=== PATIENT | female | born 1970 ===

== ENCOUNTER 2017-04-12 21:40 | Emergency (ER) | payer SELFPAY ==
[2017-04-12 21:41] VITALS: BMI 21.4
[2017-04-12 22:15] VITALS: BP 139/93; PULSE 83; RESP 16; TEMP 99; O2SAT 100
--- NOTE | 2017-04-12 22:33 | ED PDOC ---
Arrival/HPI - General Historian: Patient, Family <Luis Urrutia - Last Filed: 04/13/17 00:27> <JarrettxiangSedrick - Last Filed: 04/13/17 00:30> - General Chief Complaint: Headache Time Seen by Provider: 04/12/17 21:53 - History of Present Illness Narrative History of Present Illness (Text): 04/12/17 22:37 This is a 47 year old female with PMHx hypertension, thyroid nodule s/p right sided thyroidectomy who presented complaining of left sided frontal headache. This headache began 2 weeks ago and has been intermittent, described as a pinching pain without radiation. Patient also complaining of intermittent dizziness. Patient is also complaining of intermittent left eye and left hand paresthesias as well as left sided neck pain. Patient denies fever, chills, chest pain, dyspnea, abdominal pain, n/v/c/d, heat/cold intolerance. Patient states that she has had foul smelling urine recently. PMHx: HTN, Thyroid nodule PSHx: Right sided thyroidectomy Allergies: NKDA Social: Current smoker, denies alcohol, drugs. PMD: Dr. Blanchard (Luis Urrutia) Past Medical History - Provider Review Nursing Documentation Reviewed: Yes - Infectious Disease Hx of Infectious Diseases: None - Tetanus Immunization Tetanus Immunization: Up to Date - Cardiac Hx Cardiac Disorders: Yes Hx Hypertension: Yes - Pulmonary Hx Respiratory Disorders: No - Neurological Hx Neurological Disorder: No - HEENT Hx HEENT Disorder: No - Renal Hx Renal Disorder: No - Endocrine/Metabolic Hx Endocrine Disorders: No - Hematological/Oncological Hx Blood Disorders: No - Integumentary Hx Dermatological Disorder: No - Musculoskeletal/Rheumatological Hx Musculoskeletal Disorders: No - Gastrointestinal Hx Gastrointestinal Disorders: No - Genitourinary/Gynecological Hx Genitourinary Disorders: No - Psychiatric Hx Psychophysiologic Disorder: No Hx Substance Use: No - Surgical History Hx Tonsillectomy: Yes - Suicidal Assessment Feels Threatened In Home Enviroment: No <Luis Urrutia - Last Filed: 04/13/17 00:27> Family/Social History - Physician Review Nursing Documentation Reviewed: Yes Family/Social History: No Known Family HX Smoking Status: Heavy Smoker > 10 Cigarettes Daily Hx Alcohol Use: Yes Hx Substance Use: No <Luis Urrutia - Last Filed: 04/13/17 00:27> Allergies/Home Meds <Luis Urrutia - Last Filed: 04/13/17 00:27> <JarrettSedrick otoole - Last Filed: 04/13/17 00:30> Allergies/Adverse Reactions: Allergies No Known Allergies Allergy (Verified 12/14/15 20:34) Home Medications: Home Meds Medication Instructions Recorded Confirmed Lisinopril [Zestril] 5 mg PO DAILY 10/02/16 04/12/17 Review of Systems - Review of Systems Constitutional: Normal. absent: Fevers Eyes: Normal. absent: Vision Changes, Eye Pain ENT: Normal Respiratory: Normal. absent: SOB Cardiovascular: Normal. absent: Chest Pain Gastrointestinal: Normal. absent: Abdominal Pain, Constipation, Diarrhea, Nausea, Vomiting Genitourinary Female: Other (foul smelling urine) Musculoskeletal: Neck Pain (left sided) Skin: Normal Neurological: Headache (left sided frontal), Other (left hand and left eye paresthesias) Endocrine: Normal, Other (denies heat/cold intolerance) Hemo/Lymphatic: Normal <Luis Urrutia - Last Filed: 04/13/17 00:27> Physical Exam Vital Signs Reviewed: Yes Temperature: Afebrile Blood Pressure: Hypertensive Pulse: Regular Respiratory Rate: Normal Appearance: Positive for: Well-Appearing Pain Distress: None Mental Status: Positive for: Alert and Oriented X 3 - Systems Exam Head: Present: Atraumatic, Normocephalic Pupils: Present: PERRL Extroacular Muscles: Present: EOMI Conjunctiva: Present: Normal Mouth: Present: Moist Mucous Membranes Neck: Present: Normal Range of Motion, Paraspinal Tenderness (left sided paraspinal tenderness and increased muscle tone) Respiratory/Chest: Present: Clear to Auscultation, Good Air Exchange. No: Accessory Muscle Use Cardiovascular: Present: Regular Rate and Rhythm, Normal S1, S2 Abdomen: Present: Normal Bowel Sounds, Other (suprapubic tenderness). No: Tenderness, Distention Back: No: CVA Tenderness Upper Extremity: Present: Normal Inspection, NORMAL PULSES. No: Edema Lower Extremity: Present: Normal Inspection, NORMAL PULSES. No: Edema, CALF TENDERNESS Neurological: Present: GCS=15, CN II-XII Intact Skin: Present: Warm, Dry, Normal Color. No: Rashes Psychiatric: Present: Alert, Oriented x 3 <Luis Urrutia - Last Filed: 04/13/17 00:27> Medical Decision Making <Luis Urrutia - Last Filed: 04/13/17 00:27> - Lab Interpretations I have reviewed the lab results: Yes <Sedrick Jones - Last Filed: 04/13/17 00:30> ED Course and Treatment: 04/12/17 22:53 CBC, CMP, Mag, Phos, CT Head w.o. contrast, UA, EKG, Cardiac ISO, TSH, free T4 EKG showed NSR at rate 70 04/13/17 00:[address] Head. Patient given 10 mg IV Reglan and on re-assessment states that she feels better. Patient discharged with instructions to follow up with PMD. 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 Pt, whose past medical history includes hypertension and right-sided thyroidectomy, presented for intermittent left-sided headache for 2 weeks. Aware and agrees with HPI, clinical findings, plan, and management. Plan: -- EKG -- Labs, cardiac enzymes, T4, TSH -- Urinalysis -- Reglan -- Reassess and disposition (Sedrick Jones) - Lab Interpretations Lab Results: 04/12/17 22:58 04/12/17 22:58 Lab Results 04/12/17 22:58: Free T4 1.09, TSH 3rd Generation 1.57 04/12/17 22:58: Sodium 141, Potassium 4.1, Chloride 102, Carbon Dioxide 32, Anion Gap 11, BUN 12, Creatinine 0.7, Est GFR ( Amer) > 60, Est GFR (Non- Af Amer) > 60, Random Glucose 81, Calcium 9.4, Phosphorus 3.2, Magnesium 2.0, Total Bilirubin 0.7, AST 29, ALT 29, Alkaline Phosphatase 63, Lactate Dehydrogenase 397, Total Creatine Kinase 119, Troponin I < 0.01, Total Protein 7.4, Albumin 4.4, Globulin 3.0, Albumin/Globulin Ratio 1.5 04/12/17 22:58: Urine Color Yellow, Urine Appearance Clear, Urine pH 6.0, Ur Specific [place] <= 1.005, Urine Protein Negative, Urine Glucose (UA) Negative, Urine Ketones Negative, Urine Blood Trace-intact H, Urine Nitrate Negative, Urine Bilirubin Negative, Urine Urobilinogen 0.2, Ur Leukocyte Esterase Negative , Urine RBC 0 - 2, Urine WBC 0 - 2, Ur Epithelial Cells 3 - 4, Urine Bacteria Rare 04/12/17 22:58: WBC 7.5 D, RBC 4.30, Hgb 13.9, Hct 40.3, MCV 93.7, MCH 32.3, MCHC 34.5, RDW 13.2, Plt Count 227, MPV 11.4 H, Gran % 58.9, Lymph % (Auto) 33.2 , [place] % (Auto) 5.2, Eos % (Auto) 1.9, Baso % (Auto) 0.8, Gran # 4.45, Lymph # 2.5, [place] # 0.4, Eos # 0.1, Baso # 0.06 - Medication Orders Current Medication Orders: Discontinued Medications Metoclopramide HCl (Reglan) 10 mg IVP STAT STA Stop: 04/12/17 23:25 Last Admin: 04/12/17 23:39 Dose: 10 mg Disposition/Present on Arrival - Present on Arrival Any Indicators Present on Arrival: No History of DVT/PE: No History of Uncontrolled Diabetes: No Urinary Catheter: No History of Decub. Ulcer: No History Surgical Site Infection Following: None - Disposition Have Diagnosis and Disposition been Completed?: Yes Disposition Time: 00:30 <Luis Urrutia - Last Filed: 04/13/17 00:27> <Sedrick Jones - Last Filed: 04/13/17 00:30> - Disposition Diagnosis: Headache Disposition: HOME/ ROUTINE Patient Problems: Current Active Problems Problem Status Onset Headache Acute Condition: STABLE Additional Instructions: Your blood work results were not concerning for electrolyte or thyroid issues. Please try to get 7-8 hours of sleep per day. Please see Dr. Blanchard within 1 week of discharge. Return to the emergency room if any new or worsening symptoms. Referrals: [facility] at [facility] [place], [place] [Outside] - Follow up with primary Natty Blanchard DO [Primary Care Provider] - Follow up with primary Forms: [employer] (Ecuadorean)
[2017-04-12 23:17] LABS: ALB/GLOB RATIO 1.5 (1.1-1.8); ALKALINE PHOSPHATASE 63 U/L (38-126); ALT/SGPT 29 U/L (7-56); AST/SGOT 29 U/L (14-36); BILIRUBIN,TOTAL 0.7 mg/dL (0.2-1.3); BLOOD UREA NITROGEN 12 mg/dL (7-21); CALCIUM 9.4 mg/dL (8.4-10.5); CARBON DIOXIDE 32 mmol/L (21-33); CHLORIDE 102 mmol/L (98-107); GFR AFRICAN-AMERICAN > 60; GLUCOSE,RANDOM 81 mg/dL (70-110); PHOSPHOROUS 3.2 mg/dL (2.5-4.5); POTASSIUM 4.1 mmol/L (3.6-5.0); SODIUM 141 mmol/L (132-148); TOTAL PROTEIN 7.4 g/dL (5.8-8.3)
[2017-04-12 23:29] LABS: TROPONIN I < 0.01 ng/mL
[2017-04-12 23:31] LABS: URINE BILIRUBIN NEGATIVE (NEGATIVE); URINE BLOOD TRACE-INTACT (NEGATIVE); URINE GLUCOSE (UA) NEGATIVE (NEGATIVE); URINE KETONE NEGATIVE (NEGATIVE); URINE LEUKOCYTE ESTERASE NEGATIVE Leu/uL (NEGATIVE); URINE PROTEIN NEGATIVE mg/dL (<30 mg/dL); URINE UROBILINOGEN 0.2 E.U./dL (<1 E.U./dL)
[2017-04-12 23:33] LABS: FREE T4 1.09 ng/dL (0.78-2.19)
[2017-04-12 23:34] LABS: URINE APPEARANCE CLEAR (CLEAR); URINE COLOR YELLOW (YELLOW)
[2017-04-12 23:40] LABS: BASO # 0.06 K/mm3 (0.0-2.0); BASO % 0.8 % (0.0-3.0); EOS # 0.1 (0.0-0.7); EOS % 1.9 % (1.5-5.0); GRAN # 4.45 (1.4-6.5); GRAN % 58.9 % (50.0-68.0); HEMATOCRIT 40.3 % (36.0-48.0); LYMPH # 2.5 (1.2-3.4); LYMPH % 33.2 % (22.0-35.0); MEAN CELL VOLUME 93.7 fl (80.0-105.0); MEAN CORPUSCULAR HEMOGLOBIN 32.3 pg (25.0-35.0); MEAN CORPUSCULAR HGB CONC 34.5 g/dl (31.0-37.0); MEAN PLATELET VOLUME 11.4 fl (7.0-11.0); MONO # 0.4 (0.1-0.6); MONO % 5.2 % (1.0-6.0); RED CELL DISTRIBUTION WIDTH 13.2 % (11.5-14.5); WHITE BLOOD COUNT 7.5 10^3/ul (4.5-11.0)
[2017-04-12 23:47] LABS: THYROID STIMULATING HORMONE 1.57 mIU/mL (0.46-4.68)
[2017-04-12 23:54] LABS: URINE RBC 0 - 2 /hpf (0-2)
[2017-04-12 23:55] LABS: URINE BACTERIA RARE (NEG); URINE WBC 0 - 2 /hpf (0-6)
--- NOTE | 2017-04-13 11:06 | CARD ---
APPROVED REPORT EKG Measurement Heart [id number] <Conclusion> Normal sinus rhythm Normal ECG
== END 2017-04-13 00:37 | disposition home or self-care (01) ==
LOC: ED 21:40
DX: R51 Headache (principal); I10 Essential (primary) hypertension; F17.210 Nicotine dependence, cigarettes, uncomplicated
CPT/HCPCS: 80053; 81001; 82550; 83615; 83735; 84100; 84439; 84443; 84484; 85025; 93005; 96374; 99285; J2765